=== PATIENT | male | born 1985 | race Caucasian/White ===

== ENCOUNTER 2017-04-09 20:11 | Emergency (ER) | payer BC ==
[2017-04-09] MEDS ORDERED: CLARITIN10 M6 PO (20:25)
[2017-04-09 20:52] LABS: BASO % 0.3 % (0-2); EOS % 1.6 % (0-7); EOSINOPHIL ABSOLUTE COUNT 0.1 tho/cmm (0.0-0.7); HCT-HEMATOCRIT 41.1 % (36.0-53.5); HGB-HEMOGLOBIN 14.8 gm/dl (13.5-17.0); IMMATURE GRANULOCYTES ABSOLUTE 0.01 tho/cmm (0-0.03); IMMATURE GRANULOCYTES PERCENT 0.2 % (0-0.3); LYMPH % 22.6 % (20-45); LYMPH ABSOLUTE COUNT 1.4 tho/cmm (0.8-4.5); MCH (MEAN CORPUSCULAR HGB) 31.2 pg (28.0-32.0); MCV (MEAN CELL VOLUME) 86.7 fl (82.0-96.0); MEAN PLATELET VOLUME 9.4 cmc (9.4-12.4); MONO % 8.2 % (0-12); MONOCYTE ABSOLUTE COUNT 0.5 tho/cmm (0.0-1.2); NEUTROPHIL ABSOLUTE COUNT 4.1 tho/cmm (1.6-8.0); NEUTROPHIL-AUTOMATED 4.1 tho/cmm (1.6-8.0); NEUTROPHILS % 67.1 % (40-80); PLATELET COUNT 240 tho/cmm (150-450); RED BLOOD COUNT 4.74 mil/cmm (4.40-5.70); RED CELL DISTRIBUTION WIDTH 12.3 % (12.4-16.4); WHITE BLOOD COUNT 6.1 tho/cmm (4.0-10.0)
[2017-04-09 21:12] LABS: ALB/GLOB RATIO 1.2 (0.8-2.0); ALBUMIN 4.1 g/dl (3.5-5.0); ALKALINE PHOSPHATASE 94 U/L (33-138); ALT/SGPT 45 U/L (12-78); ANION GAP 14 mmol/L (0-20); AST/SGOT 21 U/L (10-40); BILIRUBIN,TOTAL 0.5 mg/dl (0.0-1.5); BLOOD UREA NITROGEN 17 mg/dl (6-24); CALCIUM 8.6 mg/dl (8.5-10.5); CARBON DIOXIDE-VENOUS 26 mmol/L (22-32); CHLORIDE 106 mmol/l (96-110); CREATININE 1.18 mg/dl (0.60-1.30); GLUCOSE 110 mg/dL (70-110); SODIUM 142 mmol/L (135-145); eGFR VALUE FOR BLACK >90 mL/Min
[2017-04-09 21:16] LABS: TSH-THYROID STIMULATING HORM. 1.81 uIU/ml (0.40-3.80)
[2017-04-09] MEDS ORDERED: XANAX0.5 M1 PO (22:52)
== END 2017-04-09 23:04 ==
LOC: EDMED 20:11
PROVIDERS: Emergency Medicine
DX: R07.9 Chest pain, unspecified (principal); F41.9 Anxiety disorder, unspecified; Z88.0 Allergy status to penicillin